=== PATIENT | male | born 1955 ===

== ENCOUNTER 2023-12-02 10:09 | Inpatient (IN) ==
[2023-12-02] MEDS ORDERED: IOPAMIDOL 100 ML BOTTLE IV ONE (10:10)
[2023-12-02 10:52] LABS: Basophils # (Auto) 0.02 K/mcL (0.00-0.30); Basophils % (Auto) 0.2 % (0.0-2.0); Eosinophils # (Auto) 0.03 K/mcL (0.00-0.70); Eosinophils % (Auto) 0.4 % (0.0-7.0); Hematocrit 25.3 % (40.1-51.0); Hemoglobin 8.9 g/dL (13.7-17.5); Lymphocytes # (Auto) 4.12 K/mcL (1.50-4.80); Lymphocytes % (Auto) 50.8 % (15.5-49.0); Mean Cell Volume 96.6 fL (80.0-100.0); Mean Corpuscular HGB Conc 35.2 g/dL (31.0-36.0); Mean Platelet Volume 9.1 fL (8.8-12.5); Monocytes # (Auto) 0.51 K/mcL (0.10-0.90); Monocytes % (Auto) 6.3 % (1.0-12.0); Neutrophils % (Auto) 42.1 % (38.0-78.0); Platelet Count 115 K/mcL (140-440); RBC 2.62 M/mcL (4.63-6.08); Red Cell Distribution Width 15.6 % (11.5-14.5); WBC 8.1 K/mcL (4.5-11.0)
[2023-12-02] MEDS: 0.9 % SODIUM CHLORIDE 1,000 ML IV ONE ×2 (10:54→19:12)
[2023-12-02] MEDS: FOLIC ACID 1 MG TABLET PO ONE (11:06)
[2023-12-02] MEDS: THIAMINE 100 MG in 0.9 % SODIUM CHLORIDE 50 ML IV ONE ×2 (11:06→15:35)
[2023-12-02 11:17] LABS: Alcohol,Blood 0.224 gm/dL (<0.010)
[2023-12-02 11:23] LABS: Thyroid Stimulating Hormone 2.01 uIU/mL (0.27-5.01)
[2023-12-02 11:33] LABS: ALT/SGPT 36 U/L (<40); AST/SGOT 155 U/L (<40); Albumin 3.1 gm/dL (3.2-5.2); Albumin/Globulin Ratio 0.8 (1.0-2.3); Alkaline Phosphatase 185 U/L (39-117); Bilirubin,Total 2.7 mg/dL (0.1-1.0); Blood Urea Nitrogen 13 mg/dL (8-23); Calcium 8.7 mg/dL (8.6-10.4); Carbon Dioxide 19 mmol/L (22-30); Chloride 98 mmol/L (96-108); Globulin 3.9 gm/dL (2.2-3.7); Glomerular Filtration Rate 77; Glucose 152 mg/dL (70-105); Potassium 2.2 mmol/L (3.3-5.1); Sodium 135 mmol/L (133-145)
[2023-12-02 11:58] LABS: Free T4 (Free Thyroxine) 1.11 ng/dL (0.93-1.70)
[2023-12-02] MEDS: POTASSIUM CHLORIDE 20 MEQ TABLET PO ONE ×3 (12:38→19:12)
[2023-12-02] MEDS: MAGNESIUM SULFATE 1 GM/100 ML BAG IV ONE (12:38)
[2023-12-02 13:01] LABS: INR 1.4 (0.9-1.1); Prothrombin Time 18.3 sec (11.9-14.5)
[2023-12-02] MEDS: POTASSIUM CHLORIDE 20 MEQ in DEXTROSE 5% IN WATER 250 ML IV ONE ×2 (13:04→14:54)
[2023-12-02 15:22] LABS: Appearance,Urine Cloudy (Clear); Bacteria,Urine Many /hpf (0); Bilirubin,Urine Negative (Negative); Calcium Oxalate Crystals,Urine Few /hpf; Color,Urine Yellow; Culture Indicated,Urine Yes; Glucose,Urine (UA) Negative (Negative); Ketones,Urine Trace mg/dL (Negative); Leukocyte Esterase,Urine Large /uL (Negative); Nitrate,Urine Positive (Negative); PH,Urine 8.5 (5.0-9.0); Protein,Urine >=300 mg/dL (Negative); Specific Gravity,Urine 1.015 (1.000-1.035); Urine Blood Large ery/mcL (Negative); Urine RBC 48 /hpf (0-3); Urine Squamous Epithelial Cell 0 /hpf (0-4); Urine WBC 80 /hpf (0-4); Urobilinogen,Urine >=8.0 mg/dL
[2023-12-02 16:45] LABS: Potassium 2.5 mmol/L (3.3-5.1)
[2023-12-02] MEDS: POTASSIUM CHLORIDE 40 MEQ in DEXTROSE 5% IN WATER 500 ML IV ONE (17:38)
[2023-12-02] MEDS: cefTRIAXone 2 GM in DEXTROSE 5% IN WATER 50 ML IV ONE (17:39)
[2023-12-02] MEDS ORDERED: LORazepam 2 MG/ML VIAL IV PRN (18:28)
[2023-12-02] MEDS ORDERED: ONDANSETRON 4 MG/2 ML VIAL IV PRN (18:28)
[2023-12-02] MEDS ORDERED: NICOTINE POLACRILEX 2 MG GUM CHEW/PARK PRN (18:28)
[2023-12-02] MEDS ORDERED: SENNOSIDES 1 TABLET PO PRN (18:28)
[2023-12-02] MEDS: GABAPENTIN 300 MG CAPSULE PO SCH (19:12)
[2023-12-02] MEDS: NICOTINE 21 MG PATCH TOPICAL SCH (19:31)
[2023-12-02] MEDS: cefTRIAXone 1 GM VIAL IV SCH (19:31)
[2023-12-02 19:48] LABS: INR 1.5 (0.9-1.1); Prothrombin Time 19.1 sec (11.9-14.5)
[2023-12-02] MEDS: NICOTINE 7 MG PATCH TOPICAL SCH (20:06)
[2023-12-02 20:09] LABS: Amphetamine Screen,Urine None detected; Barbiturate Screen,Urine None detected; Cannabinoid Screen,Urine None detected; Cocaine Screen,Urine None detected; Opiate Screen,Urine None detected; Oxycodone, Urine Screen None detected; Phencyclidine Screen,Urine None detected
[2023-12-02] MEDS: 0.9 % SODIUM CHLORIDE 1,000 ML IV SCH (20:39)
[2023-12-02] MEDS: 0.9 % SODIUM CHLORIDE 10 ML SYRINGE IV SCH (21:18)
[2023-12-02 21:56] LABS: Estimated Average Glucose(eAG) 65 mg/dL; Hemoglobin A1C 3.9 % Hgb (4.0-6.0)
[2023-12-02] MEDS ORDERED: 0.9 % SODIUM CHLORIDE 10 ML SYRINGE IV SCH (22:00)
[2023-12-03 00:02] LABS: Potassium 3.4 mmol/L (3.3-5.1)
[2023-12-03 06:31] LABS: INR 1.5 (0.9-1.1)
[2023-12-03 07:01] LABS: ALT/SGPT 25 U/L (<40); AST/SGOT 113 U/L (<40); Albumin 2.8 gm/dL (3.2-5.2); Albumin/Globulin Ratio 0.8 (1.0-2.3); Alkaline Phosphatase 156 U/L (39-117); Bilirubin,Direct 1.3 mg/dL (<0.3); Bilirubin,Total 2.1 mg/dL (0.1-1.0); Blood Urea Nitrogen 12 mg/dL (8-23); Calcium 8.2 mg/dL (8.6-10.4); Carbon Dioxide 20 mmol/L (22-30); Chloride 104 mmol/L (96-108); Globulin 3.3 gm/dL (2.2-3.7); Glomerular Filtration Rate 92; Glucose 113 mg/dL (70-105); Lactate Dehydrogenase 146 U/L (135-225); Phosphorous 1.8 mg/dL (2.5-4.5); Potassium 3.9 mmol/L (3.3-5.1); Sodium 134 mmol/L (133-145); Triglycerides 61 mg/dL (<150); Uric Acid 4.9 mg/dL (2.5-8.0)
[2023-12-03 07:39] LABS: Basophils # (Auto) 0.01 K/mcL (0.00-0.30); Basophils % (Auto) 0.3 % (0.0-2.0); Eosinophils # (Auto) 0.02 K/mcL (0.00-0.70); Eosinophils % (Auto) 0.5 % (0.0-7.0); Hemoglobin 7.6 g/dL (13.7-17.5); Lymphocytes # (Auto) 1.42 K/mcL (1.50-4.80); Lymphocytes % (Auto) 37.7 % (15.5-49.0); Mean Cell Volume 99.1 fL (80.0-100.0); Mean Platelet Volume 9.3 fL (8.8-12.5); Monocytes # (Auto) 0.28 K/mcL (0.10-0.90); Monocytes % (Auto) 7.4 % (1.0-12.0); Neutrophils % (Auto) 53.6 % (38.0-78.0); Platelet Count 96 K/mcL (140-440); RBC 2.32 M/mcL (4.63-6.08); WBC 3.8 K/mcL (4.5-11.0)
[2023-12-03] MEDS: MULTIVIT,THER IRON,CA,FA & MIN 1 TABLET PO SCH (08:46)
[2023-12-03] MEDS: cefTRIAXone 1 GM VIAL IV SCH (08:46)
[2023-12-03] MEDS: THIAMINE 100 MG TABLET PO SCH (08:46)
[2023-12-03] MEDS: SODIUM PHOSPHATE 15 MMOL in DEXTROSE 5% IN WATER 250 ML IV ONE (08:46)
[2023-12-03] MEDS ORDERED: FOLIC ACID 1 MG TABLET PO SCH (09:00)
[2023-12-03] MEDS ORDERED: ENOXAPARIN 40 MG/0.4 ML SYRINGE SQ SCH (09:00)
[2023-12-03] MEDS: LIDOCAINE 2% URO-JET 10 ML JEL.PF.APP UR ONE ×2 (10:18→20:49)
[2023-12-03] MEDS: PHYTONADIONE 10 MG/ML AMPUL PO SCH (11:29)
[2023-12-03] MEDS: PHYTONADIONE 10 MG/ML AMPUL PO ONE (11:30)
[2023-12-03] MEDS: TAMSULOSIN 0.4 MG CAPSULE PO SCH ×2 (12:22→20:49)
[2023-12-03 14:10] LABS: Hematocrit 21.8 % (40.1-51.0); Hemoglobin 7.5 g/dL (13.7-17.5)
[2023-12-03] MEDS: traMADol 50 MG TABLET PO ONE (20:50)
[2023-12-04 06:29] LABS: Basophils # (Auto) 0.01 K/mcL (0.00-0.30); Basophils % (Auto) 0.3 % (0.0-2.0); Eosinophils # (Auto) 0.02 K/mcL (0.00-0.70); Eosinophils % (Auto) 0.6 % (0.0-7.0); Hematocrit 22.3 % (40.1-51.0); Hemoglobin 7.3 g/dL (13.7-17.5); Lymphocytes # (Auto) 1.56 K/mcL (1.50-4.80); Lymphocytes % (Auto) 43.8 % (15.5-49.0); Mean Cell Volume 102.3 fL (80.0-100.0); Mean Corpuscular HGB Conc 32.7 g/dL (31.0-36.0); Mean Platelet Volume 9.6 fL (8.8-12.5); Monocytes % (Auto) 8.4 % (1.0-12.0); Neutrophils % (Auto) 46.6 % (38.0-78.0); Platelet Count 63 K/mcL (140-440); RBC 2.18 M/mcL (4.63-6.08); Red Cell Distribution Width 16.2 % (11.5-14.5); WBC 3.6 K/mcL (4.5-11.0)
[2023-12-04 06:55] LABS: ALT/SGPT 26 U/L (<40); AST/SGOT 103 U/L (<40); Albumin 2.7 gm/dL (3.2-5.2); Albumin/Globulin Ratio 0.8 (1.0-2.3); Alkaline Phosphatase 177 U/L (39-117); Bilirubin,Direct 1.2 mg/dL (<0.3); Bilirubin,Total 1.8 mg/dL (0.1-1.0); Blood Urea Nitrogen 11 mg/dL (8-23); Calcium 8.1 mg/dL (8.6-10.4); Carbon Dioxide 20 mmol/L (22-30); Chloride 102 mmol/L (96-108); Globulin 3.3 gm/dL (2.2-3.7); Glomerular Filtration Rate 97; Glucose 122 mg/dL (70-105); Lactate Dehydrogenase 132 U/L (135-225); Phosphorous 2.1 mg/dL (2.5-4.5); Potassium 3.4 mmol/L (3.3-5.1); Sodium 132 mmol/L (133-145); Triglycerides 61 mg/dL (<150); Uric Acid 3.3 mg/dL (2.5-8.0)
[2023-12-04 08:21] LABS: INR 1.5 (0.9-1.1); Prothrombin Time 18.8 sec (11.9-14.5)
[2023-12-04] MEDS: PHYTONADIONE 10 MG/ML AMPUL PO SCH (08:56)
[2023-12-04] MEDS: POTASSIUM CHLORIDE 40 MEQ in DEXTROSE 5% IN WATER 500 ML IV SCH (11:06)
[2023-12-04 16:43] LABS: Hematocrit 22.6 % (40.1-51.0); Hemoglobin 7.6 g/dL (13.7-17.5)
[2023-12-05 06:29] LABS: ALT/SGPT 29 U/L (<40); AST/SGOT 117 U/L (<40); Albumin 2.6 gm/dL (3.2-5.2); Albumin/Globulin Ratio 0.8 (1.0-2.3); Alkaline Phosphatase 208 U/L (39-117); Bilirubin,Direct 1.3 mg/dL (<0.3); Bilirubin,Total 1.8 mg/dL (0.1-1.0); Blood Urea Nitrogen 11 mg/dL (8-23); Calcium 8.3 mg/dL (8.6-10.4); Carbon Dioxide 20 mmol/L (22-30); Chloride 102 mmol/L (96-108); Globulin 3.2 gm/dL (2.2-3.7); Glomerular Filtration Rate 97; Glucose 136 mg/dL (70-105); Lactate Dehydrogenase 129 U/L (135-225); Phosphorous 1.7 mg/dL (2.5-4.5); Potassium 4.1 mmol/L (3.3-5.1); Sodium 129 mmol/L (133-145); Triglycerides 65 mg/dL (<150); Uric Acid 2.9 mg/dL (2.5-8.0)
[2023-12-05 06:36] LABS: Basophils # (Auto) 0.01 K/mcL (0.00-0.30); Basophils % (Auto) 0.2 % (0.0-2.0); Eosinophils # (Auto) 0.02 K/mcL (0.00-0.70); Eosinophils % (Auto) 0.5 % (0.0-7.0); Lymphocytes # (Auto) 1.62 K/mcL (1.50-4.80); Lymphocytes % (Auto) 39.7 % (15.5-49.0); Mean Cell Volume 102.4 fL (80.0-100.0); Mean Corpuscular HGB Conc 33.3 g/dL (31.0-36.0); Monocytes # (Auto) 0.27 K/mcL (0.10-0.90); Monocytes % (Auto) 6.6 % (1.0-12.0); Neutrophils % (Auto) 52.8 % (38.0-78.0); Platelet Count 62 K/mcL (140-440); RBC 2.05 M/mcL (4.63-6.08); Red Cell Distribution Width 16.5 % (11.5-14.5); WBC 4.1 K/mcL (4.5-11.0)
[2023-12-05 07:33] LABS: INR 1.5 (0.9-1.1); Prothrombin Time 18.8 sec (11.9-14.5)
[2023-12-05 08:00] LABS: Hematocrit 21.5 % (40.1-51.0); Hemoglobin 7.2 g/dL (13.7-17.5)
[2023-12-05] MEDS: SODIUM CHLORIDE 1 GM TABLET PO ONE (09:06)
[2023-12-05] MEDS: 0.9 % SODIUM CHLORIDE 1,000 ML IV SCH (09:07)
[2023-12-05] MEDS: SODIUM PHOSPHATE 30 MMOL in DEXTROSE 5% IN WATER 500 ML IV ONE (12:37)
[2023-12-05] MEDS: GABAPENTIN 100 MG CAPSULE PO SCH (15:54)
[2023-12-05 17:33] LABS: Hematocrit 18.8 % (40.1-51.0); Hemoglobin 6.4 g/dL (13.7-17.5)
[2023-12-05] MEDS: 0.9 % SODIUM CHLORIDE 250 ML IV SCH (20:08)
[2023-12-05] MEDS: CIPROFLOXACIN 400 MG/200 ML BAG IV SCH (20:08)
[2023-12-05] MEDS ORDERED: NYSTATIN POWDER BOTTLE 15GM TOPICAL SCH (21:00)
[2023-12-06 07:13] LABS: ALT/SGPT 35 U/L (<40); AST/SGOT 144 U/L (<40); Albumin 2.6 gm/dL (3.2-5.2); Albumin/Globulin Ratio 0.9 (1.0-2.3); Alkaline Phosphatase 200 U/L (39-117); Bilirubin,Direct 2.5 mg/dL (<0.3); Bilirubin,Total 3.6 mg/dL (0.1-1.0); Blood Urea Nitrogen 11 mg/dL (8-23); Calcium 8.1 mg/dL (8.6-10.4); Carbon Dioxide 18 mmol/L (22-30); Chloride 100 mmol/L (96-108); Glomerular Filtration Rate 104; Glucose 107 mg/dL (70-105); Lactate Dehydrogenase 190 U/L (135-225); Phosphorous 2.7 mg/dL (2.5-4.5); Potassium 3.7 mmol/L (3.3-5.1); Sodium 126 mmol/L (133-145); Triglycerides 58 mg/dL (<150); Uric Acid 2.8 mg/dL (2.5-8.0)
[2023-12-06 07:40] LABS: Basophils # (Auto) 0.02 K/mcL (0.00-0.30); Basophils % (Auto) 0.4 % (0.0-2.0); Eosinophils # (Auto) 0.03 K/mcL (0.00-0.70); Eosinophils % (Auto) 0.6 % (0.0-7.0); Hemoglobin 8.5 g/dL (13.7-17.5); Lymphocytes # (Auto) 1.63 K/mcL (1.50-4.80); Lymphocytes % (Auto) 31.3 % (15.5-49.0); Mean Cell Volume 96.9 fL (80.0-100.0); Mean Platelet Volume 10.2 fL (8.8-12.5); Monocytes # (Auto) 0.47 K/mcL (0.10-0.90); Neutrophils % (Auto) 58.1 % (38.0-78.0); Platelet Count 67 K/mcL (140-440); RBC 2.58 M/mcL (4.63-6.08); Red Cell Distribution Width 19.3 % (11.5-14.5); WBC 5.2 K/mcL (4.5-11.0)
[2023-12-06] MEDS: CIPROFLOXACIN 500 MG TABLET PO SCH (08:10)
[2023-12-06] MEDS: POLYETHYLENE GLYCOL 3350 17 GM PACKET PO PRN (08:11)
[2023-12-06 08:29] LABS: Blood Urea Nitrogen 10 mg/dL (8-23); Calcium 8.1 mg/dL (8.6-10.4); Carbon Dioxide 19 mmol/L (22-30); Chloride 98 mmol/L (96-108); Glomerular Filtration Rate 104; Glucose 99 mg/dL (70-105); Potassium 3.8 mmol/L (3.3-5.1); Sodium 125 mmol/L (133-145)
[2023-12-06 09:18] LABS: INR 1.4 (0.9-1.1); Prothrombin Time 17.8 sec (11.9-14.5)
[2023-12-06 10:41] LABS: Sodium, Urine Random < 20 mmol/L
[2023-12-06] MEDS: FUROSEMIDE 40 MG/4 ML VIAL IV ONE ×2 (11:01→17:12)
[2023-12-06 11:16] LABS: Osmolality,Urine 330 mOSM/kg (80-1000)
[2023-12-06 14:57] LABS: Sodium 128 mmol/L (133-145)
[2023-12-06] MEDS: SODIUM CHLORIDE 1 GM TABLET PO ONE (16:42)
[2023-12-06] MEDS: GABAPENTIN 100 MG CAPSULE PO SCH (21:28)
[2023-12-06 21:40] LABS: Sodium 131 mmol/L (133-145)
[2023-12-07 06:52] LABS: ALT/SGPT 43 U/L (<40); AST/SGOT 165 U/L (<40); Albumin 2.4 gm/dL (3.2-5.2); Albumin/Globulin Ratio 0.7 (1.0-2.3); Alkaline Phosphatase 177 U/L (39-117); Bilirubin,Direct 2.4 mg/dL (<0.3); Bilirubin,Total 3.3 mg/dL (0.1-1.0); Blood Urea Nitrogen 12 mg/dL (8-23); Calcium 8.4 mg/dL (8.6-10.4); Carbon Dioxide 17 mmol/L (22-30); Chloride 101 mmol/L (96-108); Globulin 3.3 gm/dL (2.2-3.7); Glomerular Filtration Rate 104; Glucose 97 mg/dL (70-105); Lactate Dehydrogenase 173 U/L (135-225); Phosphorous 3.3 mg/dL (2.5-4.5); Potassium 3.7 mmol/L (3.3-5.1); Sodium 128 mmol/L (133-145); Triglycerides 63 mg/dL (<150); Uric Acid 3.5 mg/dL (2.5-8.0)
[2023-12-07 07:39] LABS: Basophils # (Auto) 0.01 K/mcL (0.00-0.30); Basophils % (Auto) 0.2 % (0.0-2.0); Eosinophils # (Auto) 0.02 K/mcL (0.00-0.70); Eosinophils % (Auto) 0.5 % (0.0-7.0); Hematocrit 27.1 % (40.1-51.0); Hemoglobin 8.4 g/dL (13.7-17.5); Lymphocytes # (Auto) 1.26 K/mcL (1.50-4.80); Lymphocytes % (Auto) 28.9 % (15.5-49.0); Mean Platelet Volume 10.5 fL (8.8-12.5); Monocytes # (Auto) 0.41 K/mcL (0.10-0.90); Monocytes % (Auto) 9.4 % (1.0-12.0); Neutrophils % (Auto) 60.3 % (38.0-78.0); Platelet Count 69 K/mcL (140-440); RBC 2.58 M/mcL (4.63-6.08); Red Cell Distribution Width 20.3 % (11.5-14.5); WBC 4.4 K/mcL (4.5-11.0)
[2023-12-07] MEDS: SODIUM CHLORIDE 1 GM TABLET PO SCH (10:50)
[2023-12-07] MEDS: FUROSEMIDE 40 MG/4 ML VIAL IV ONE (10:55)
[2023-12-07 15:52] LABS: Blood Urea Nitrogen 12 mg/dL (8-23); Calcium 8.4 mg/dL (8.6-10.4); Carbon Dioxide 23 mmol/L (22-30); Chloride 99 mmol/L (96-108); Glomerular Filtration Rate 97; Glucose 115 mg/dL (70-105); Potassium 3.4 mmol/L (3.3-5.1); Sodium 133 mmol/L (133-145)
[2023-12-07] MEDS: POTASSIUM CHLORIDE 20 MEQ TABLET PO ONE (17:24)
[2023-12-08 07:10] LABS: Basophils # (Auto) 0.01 K/mcL (0.00-0.30); Basophils % (Auto) 0.2 % (0.0-2.0); Eosinophils # (Auto) 0.04 K/mcL (0.00-0.70); Eosinophils % (Auto) 0.9 % (0.0-7.0); Hematocrit 25.1 % (40.1-51.0); Hemoglobin 8.7 g/dL (13.7-17.5); Lymphocytes # (Auto) 1.19 K/mcL (1.50-4.80); Lymphocytes % (Auto) 27.4 % (15.5-49.0); Mean Cell Volume 96.5 fL (80.0-100.0); Mean Corpuscular HGB Conc 34.7 g/dL (31.0-36.0); Mean Platelet Volume 9.6 fL (8.8-12.5); Monocytes # (Auto) 0.43 K/mcL (0.10-0.90); Monocytes % (Auto) 9.9 % (1.0-12.0); Neutrophils % (Auto) 60.9 % (38.0-78.0); Platelet Count 110 K/mcL (140-440); Red Cell Distribution Width 19.7 % (11.5-14.5); WBC 4.4 K/mcL (4.5-11.0)
[2023-12-08 07:40] LABS: ALT/SGPT 41 U/L (<40); AST/SGOT 159 U/L (<40); Albumin 2.8 gm/dL (3.2-5.2); Albumin/Globulin Ratio 0.9 (1.0-2.3); Alkaline Phosphatase 192 U/L (39-117); Bilirubin,Direct 2.1 mg/dL (<0.3); Bilirubin,Total 2.9 mg/dL (0.1-1.0); Blood Urea Nitrogen 13 mg/dL (8-23); Calcium 8.5 mg/dL (8.6-10.4); Carbon Dioxide 22 mmol/L (22-30); Chloride 102 mmol/L (96-108); Globulin 3.2 gm/dL (2.2-3.7); Glomerular Filtration Rate 104; Glucose 95 mg/dL (70-105); Lactate Dehydrogenase 172 U/L (135-225); Phosphorous 3.7 mg/dL (2.5-4.5); Potassium 3.7 mmol/L (3.3-5.1); Sodium 134 mmol/L (133-145); Triglycerides 63 mg/dL (<150)
[2023-12-08] MEDS: MAGNESIUM OXIDE 400 MG TABLET PO SCH (09:33)
[2023-12-08 10:07] LABS: Alprazolam, Urine Negative (Cutoff=100); Clonazepam, Urine Negative (Cutoff=100); Flurazepam, Urine Negative (Cutoff=100); Lorazepam, Urine Negative (Cutoff=100); Midazolam, Urine Negative (Cutoff=100); Nordiazepam, Urine Negative (Cutoff=100); Oxazepam, Urine Negative (Cutoff=100); Temazepam, Urine Negative (Cutoff=100); Triazolam, Urine Negative (Cutoff=100)
[2023-12-08] MEDS: FUROSEMIDE 20 MG/2 ML VIAL IV ONE (12:03)
[2023-12-09 06:34] LABS: Basophils # (Auto) 0.01 K/mcL (0.00-0.30); Basophils % (Auto) 0.3 % (0.0-2.0); Eosinophils # (Auto) 0.04 K/mcL (0.00-0.70); Hematocrit 26.4 % (40.1-51.0); Lymphocytes # (Auto) 1.41 K/mcL (1.50-4.80); Lymphocytes % (Auto) 36.6 % (15.5-49.0); Mean Cell Volume 98.9 fL (80.0-100.0); Mean Corpuscular HGB Conc 34.1 g/dL (31.0-36.0); Mean Platelet Volume 9.2 fL (8.8-12.5); Monocytes # (Auto) 0.35 K/mcL (0.10-0.90); Monocytes % (Auto) 9.1 % (1.0-12.0); Neutrophils % (Auto) 52.7 % (38.0-78.0); Platelet Count 100 K/mcL (140-440); RBC 2.67 M/mcL (4.63-6.08); Red Cell Distribution Width 20.1 % (11.5-14.5); WBC 3.9 K/mcL (4.5-11.0)
[2023-12-09 06:53] LABS: ALT/SGPT 38 U/L (<40); AST/SGOT 139 U/L (<40); Albumin 2.6 gm/dL (3.2-5.2); Albumin/Globulin Ratio 0.7 (1.0-2.3); Alkaline Phosphatase 158 U/L (39-117); Bilirubin,Direct 2.1 mg/dL (<0.3); Blood Urea Nitrogen 15 mg/dL (8-23); Calcium 8.6 mg/dL (8.6-10.4); Carbon Dioxide 25 mmol/L (22-30); Chloride 102 mmol/L (96-108); Globulin 3.5 gm/dL (2.2-3.7); Glomerular Filtration Rate 104; Glucose 85 mg/dL (70-105); Lactate Dehydrogenase 168 U/L (135-225); Phosphorous 3.9 mg/dL (2.5-4.5); Potassium 3.4 mmol/L (3.3-5.1); Sodium 135 mmol/L (133-145); Triglycerides 57 mg/dL (<150); Uric Acid 4.7 mg/dL (2.5-8.0)
== END 2023-12-09 11:56 | DRG 641 ==
LOC: ED 10:09 → ICU 18:10 → MEDSUR 12-08 17:05
PROVIDERS: ADMIT Student in an Organized Health Care Education/Training Program; ATTEND Internal Medicine